=== PATIENT | male | born 2000 | race Caucasian/White ===

== ENCOUNTER 2024-02-12 04:33 | Day surgery (SDC) | payer OTHER ==
[2024-02-12] MEDS ORDERED: GLUCAGON HCL (Rdna) 1 MG VIAL IV ONE ×2 (04:50→05:30)
[2024-02-12] MEDS ORDERED: DEXTROSE 5% w/NACL 0.45 1,000 ML IV ONE (06:45)
[2024-02-12 07:00] LABS: BASO% 0.6 % (0-3); EOS% 2.2 % (0-8); HEMATOCRIT 43.6 % (39.0-50.0); IMMATURE GRANULOCYTES 0.2 % (0.0-5.0); LYMPH% 13.9 % (15-41); MEAN CELL VOLUME 87.2 fL CALC (80.0-100.0); MEAN CORPUSCULAR HGB CONC 34.4 g/dL CAL (32.0-36.0); MONO% 4.7 % (2-13); NEUT# 11.87 thou/uL (1.82-7.42); NEUT% 78.4 % (42-76); RED CELL DISTRI WIDTH 11.5 % (11.5-15.5)
[2024-02-12 07:15] VITALS: BP 118/71
[2024-02-12 07:17] LABS: ALBUMIN 5.2 g/dL (3.2-5.0); BILIRUBIN, TOTAL 0.7 mg/dL (0.2-1.3); POTASSIUM 3.8 mmol/l (3.5-5.1)
[2024-02-12] MEDS ORDERED: ONDANSETRON HCl 4 MG/2 ML SDV IV ONE (07:20)
[2024-02-12 07:30] VITALS: BP 122/76
[2024-02-12 07:45] VITALS: BP 128/66
[2024-02-12] MEDS ORDERED: FAMOTIDINE 10MG/ML 2ML SDV IV ONE (08:18)
[2024-02-12 10:27] VITALS: BP 131/80
[2024-02-12] MEDS ORDERED: LIDOCAINE HCL 2% 2ML SDV IV ONE (15:06)
[2024-02-12] MEDS ORDERED: PROPOFOL 200 MG/20 ML VIAL IV ONE (15:06)
[2024-02-12] MEDS ORDERED: SUCCINYLCHOLINE CHLORIDE 20 MG/ML 10ML VIAL IV ONE (15:06)
== END 2024-02-12 10:25 | disposition home or self-care (01) | DRG 395 ==
LOC: ED 04:33 → ORM 07:19
PROVIDERS: Emergency Medicine; ATTEND Surgery
PROC: 0DC38ZZ Extirpation of Matter from Lower Esophagus, Via Natural or Artificial Opening Endoscopic (ICD-10-PCS; principal; 2024-02-12)
PROC: 0D758ZZ Dilation of Esophagus, Via Natural or Artificial Opening Endoscopic (ICD-10-PCS; 2024-02-12)
DX: T18.128A Food in esophagus causing other injury, initial encounter (principal); K22.2 Esophageal obstruction; K20.0 Eosinophilic esophagitis; Q40.8 Other specified congenital malformations of upper alimentary tract; W44.F3XA Food entering into or through a natural orifice, initial encounter
CPT/HCPCS: J1610